=== PATIENT | female | born 1975 | race African-American/Black ===

== ENCOUNTER 2020-01-05 18:27 | Emergency (ER) | payer MEDICAID, OTHER ==
[~2020-01-05] VITALS: Ht 170.2 cm; Wt 111.6 kg
[2020-01-05] MEDS ORDERED: HYDROCHLOROTHIA50 MG ORAL (18:43)
--- NOTE | 2020-01-05 18:48 | NUR ---
ED Nurse Note: pt presents as in triage, able to ambulate steady gait to for eval.
[2020-01-05] MEDS ORDERED: Ketorolac 60mg Inj IM ONE (19:00)
--- NOTE | 2020-01-05 19:08 | Emergency Room Report ---
History of Present Illness General Chief Complaint: Multiple Trauma/Fall Present Illness HPI Patient is a 44-year-old female presents after increased low back pain. Reports having recent fall. States she sat in a chair which subsequently broke. Reports having pain to her low back. Had been able to ambulate after the fall. Patient parent injury occurred approximately 11:00 this morning. Denies any other recent injuries. Reports having some pain to her neck as well as her low back. Denies any head trauma. Denies loss of consciousness. Reports having prior history of hypertension. Denies taking pain medication regularly.Patient stated that she was attempting to sit into a chair.Patient was able to ambulate in the emergency department. Allergies: Coded Allergies: No Known Allergies (Unverified , 01/05/20) COVID-19 Screening Contact w/high risk pt: No Recent Travel to affected area: No Experienced COVID-19 symptoms?: No COVID-19 Testing performed BAGGING SALVAGER: No Patient History Past Medical History: see triage record Last Menstrual Period: 5-11 Now: No Reviewed Nursing Documentation: PMH: Agreed; PSxH: Agreed Nursing Documentation-PMH Past Medical History: No History, Except For Hx Hypertension: Yes Review of Systems All Other Systems: negative except mentioned in HPI Physical Exam Vital Signs Date Time Temp Pulse Resp B/P (MAP) Pulse Ox O2 Delivery O2 Flow Rate FiO2 01/05/20 18:37 97.9 57 18 118/67 (84) 96 Room Air General Appearance: well appearing, no apparent distress, alert, GCS 15, obese Head: normocephalic, atraumatic ENT: hearing grossly normal, normal voice Neck: full range of motion, supple Respiratory: chest non-tender, lungs clear, no respiratory distress, speaking full sentences Cardiovascular #1: normal inspection, no edema Musculoskeletal: normal inspection, swelling, normal range of motion Neurologic: alert, motor strength/tone normal, 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 Differential diagnosis include was not limited to fracture, contusion, strain among others. Patient has a benign exam and does not appear to require any laboratory testing at this time. A lumbar spine x-ray was ordered due to patient's recent trauma. Exam does not show any evidence of any step-offs or deformity. Patient appears to be stable for outpatient management. X-ray imaging showed no evidence of acute fracture or malalignment. The patient is advised to follow up with primary care doctor in 1-2 days. Patient is advised to return if any worsening condition or if any changes in status that are concerning. This report is dictated with [employer] merchandise director software which may occasionally lead to discrepancies related to use of this software. Last Vital Signs Date Time Temp Pulse Resp B/P (MAP) Pulse Ox O2 Delivery O2 Flow Rate FiO2 01/05/20 18:45 57 18 Room Air 01/05/20 18:37 97.9 118/67 (84) 96 Status: improved Disposition: HOME, SELF-CARE Condition: Stable Scripts Methocarbamol* (ROBAXIN-500*) 500 Mg Tablet 500 MG ORAL TID PRN for For Pain, #15 TAB 0 Refills Prov: oJsé Miguel Christianson MD 01/05/20 José Miguel Christianson MD January 05, 2020 19:08
[2020-01-05] MEDS ORDERED: ROBAXIN-500MG ORAL (19:11)
[2020-01-05] MEDS ORDERED: Methocarbamol 500mg tab ORAL ONE (19:15)
--- NOTE | 2020-01-05 19:18 | NUR ---
HAND-OFF: Report given to Kiersten Mason RN.
--- NOTE | 2020-01-05 19:25 | NUR ---
ED Nurse Note: Recieved report to resume care, pt in room sitting on bed, awake and alert, here for back pain, pt signed waiver form for x-ray to be done and medicated for pain as ordered, will resume care and monitor for effectiveness.
[2020-01-05 20:15] VITALS: BP 124/77
[2020-01-05 20:20] VITALS: BP 124/77
--- NOTE | 2020-01-05 20:20 | NUR ---
ER DISCHARGE NOTE: Patient is cleared to be discharged per ERMD, pt is aox4, on room air, with stable vital signs. pt was given dc and prescription instructions, pt was able to verbalize understanding, pt id band removed without complications. pt is able to ambulate with steady gait. pt took all belongings.
--- NOTE | 2020-01-06 09:06 | Diagnostic Imaging Report ---
EXAM: X-RAY [facility] CLINICAL HISTORY: Back pain. COMPARISON: None FINDINGS: Total of 3 views of the lumbar spine were obtained. Alignment is anatomic. There are 4 non-ribbed lumbar vertebral bodies so L5 may be a sacralized transitional vertebra. No acute fracture, compression deformity, bony lesion or erosion noted. Degenerative disc space narrowing and hypertrophic facet disease noted in the mid to lower lumbar spine. Surrounding soft tissue is normal. IMPRESSION: MILD SPONDYLOSIS. NO ACUTE BONY ABNORMALITY. POSSIBLE TRANSITIONAL VERTEBRA OF L5.
== END 2020-01-05 20:20 | disposition home or self-care (01) ==
LOC: EMR 19:10
DX: T14.8XXA Other injury of unspecified body region, initial encounter (principal); W19.XXXA Unspecified fall, initial encounter; Y92.9 Unspecified place or not applicable; I10 Essential (primary) hypertension; E66.9 Obesity, unspecified; Z68.38 Body mass index [BMI] 38.0-38.9, adult
CPT/HCPCS: 72020; 96372; 99283